=== PATIENT | male | born 1990 | race Caucasian/White ===

== ENCOUNTER 2020-07-20 11:45 | Emergency (ER) | payer SELFPAY ==
[2020-07-20 11:47] VITALS: BP 153/88; PULSE 104; RESP 18; TEMP 36.8; O2SAT 99; BMI 37.5
--- NOTE | 2020-07-20 12:15 | RAD_ITS ---
STUDY: X-RAY - LEFT KNEE REASON FOR EXAM: Male, 30 years old. LEFT KNEE PAIN AFTER INJURY YESTERDAY TECHNIQUE: 4 view(s) of the knee. COMPARISON: None. FINDINGS: Normal visualized distal femur. Normal visualized proximal tibia and fibula. Normal proximal tibiofibular articulation. Normal medial femorotibial compartment. Normal lateral femorotibial compartment. Normal patellofemoral articulation. The soft tissue structures are unremarkable. RAD/Knee 4 or More Views IMPRESSION: Normal x-ray examination of the knee. Electronically Signed: Jorge Jiang, at 12:29 EST , Service support ,
--- NOTE | 2020-07-20 13:18 | ED.DCSUM_ITS ---
History of Present Illness Chief Complaint: Lower Extremity Injury Narrative: 30-year-old male states that he tweaked his left knee while working on a deck yesterday. He states he was stepping down off of the deck onto a step when it twisted. He has pain in the lateral aspect of the knee. He is ambulatory. He has no direct trauma. Has no paresthesias. No lacerations or abrasions. Past Medical History - Allergies and Home Meds Allergies/Adverse Reactions: Allergies No Known Allergies Allergy (Verified 07/20/20 11:46) Primary Care Physician: [facility] Doctor,Out of [NON-STAFF] - Past Medical History: - - She denies significant medical history. Surgical History: noncontributory Lives: Alone Smoking Status: Former smoker Alcohol: None Drugs: None Review of Systems General: Denies: Chills, Fever, Sweats Eyes: Denies: Visual changes - bilaterally, Diplopia ENT: Denies: Rhinorrhea, Sore throat Cardiovascular: Denies: Chest pain, Palpitations Respiratory: Denies: Dyspnea, Cough, Dyspnea on exertion Gastrointestinal: Denies: Abdominal pain, Nausea, Vomiting, Diarrhea, Melena, Hematochezia Genitourinary: Denies: Dysuria, Hematuria, Frequency Musculoskeletal: Reports: Extremity Pain - Left lateral knee pain. Denies: Myalgias Skin: Denies: Rash, Wounds Neurological: Denies: Headache, Weakness, Numbness Psych: Denies: Depression, Anxiety Physical Exam Vital Signs/Narrative: Vital Signs Temp Pulse Resp BP Pulse Ox 07/20/20 11:47 98.2 F 104 H 18 153/88 H 99 General: Well nourished, No Acute Distress Head: Normocephalic, Atraumatic Eyes: Perrl, EOMI Cardiovascular: Regular rate, Regular rhythm Respiratory: No distress, CTA bilaterally Extremities: - - Left knee is tender outpatient on the lateral joint line. There is no bony deformities or step-offs. There is no ligament laxity noted. Extensor mechanism is intact. Skin: Normal color, No rash Neurological: Alert, Oriented x3 Psychological: Normal affect, Normal Mood Diagnostic/Tx/Re-eval Clinical Impression(s) from Imaging Studies Knee X-Ray 07/20/20 12:15 IMPRESSION: Normal x-ray examination of the knee. Electronically Signed: Jorge Jiang, at 12:29 EST , Service support , - Medical Decision Making 30-year-old male with left knee pain after deceleration injury. He does have pain on the lateral joint line. He does not have any ligament laxity. Extensor mechanism is intact. Patient could possibly have meniscus injury. He is counseled to use NSAIDs, compression, ice. Patient will follow up with his PCP outpatient to ensure resolution. Impression: 1. Left knee strain ED Disposition - Plan for ED Patient: Disposition: Home or Assisted Living Instructions: ED Knee Sprain Referrals: [facility] Doctor,Out of [NON-STAFF] -
== END 2020-07-20 13:56 | disposition home or self-care (01) ==
PROVIDERS: Emergency Provider Student in an Organized Health Care Education/Training Program
DX: S86.912A Strain of unspecified muscle(s) and tendon(s) at lower leg level, left leg, initial encounter (principal); X50.1XXA Overexertion from prolonged static or awkward postures, initial encounter; Y93.9 Activity, unspecified; Y92.89 Other specified places as the place of occurrence of the external cause; Y99.9 Unspecified external cause status; Z87.891 Personal history of nicotine dependence
CPT/HCPCS: 73564; 99282